=== PATIENT | female | born 1995 | race Caucasian/White ===

== ENCOUNTER 2018-10-23 18:52 | Outpatient (CLI) | payer OTHER ==
[2018-10-23] MEDS ORDERED: PRENATAL FORMU1 EAC1 PO (19:03)
[2018-10-23] MEDS ORDERED: FOLIC ACID1 MG PO (19:03)
[2018-10-24] MEDS ORDERED: CEFADROXIL500 MG PO (12:31)
== END 2018-10-24 14:08 | disposition home or self-care (01) ==
LOC: OBS/DEL 18:52
DX: O23.42 Unspecified infection of urinary tract in pregnancy, second trimester (principal); Z34.02 Encounter for supervision of normal first pregnancy, second trimester

== ENCOUNTER 2019-01-18 15:56 | Inpatient (IN) | payer OTHER ==
[~2019-01-18] VITALS: Ht 160 cm; Wt 62.1 kg
[~2019-01-18 15:56] MED LIST: CEFADROXIL500 MG PO; FOLIC ACID1 MG PO; PRENATAL FORMU1 EAC1 PO
== END 2019-01-28 17:31 | disposition home or self-care (01) | DRG 807 ==
LOC: OB/GYN 01-26 13:03 → LDR 01-26 13:03 → OB/GYN 01-26 19:05
PROVIDERS: ADMIT Obstetrics & Gynecology
PROC: 10E0XZZ Delivery of Products of Conception, External Approach (ICD-10-PCS; principal; 2019-01-26)
PROC: 3E033VJ Introduction of Other Hormone into Peripheral Vein, Percutaneous Approach (ICD-10-PCS; 2019-01-26)
PROC: 4A1HXCZ Monitoring of Products of Conception, Cardiac Rate, External Approach (ICD-10-PCS; 2019-01-26)
DX: O80 Encounter for full-term uncomplicated delivery (principal); Z37.0 Single live birth; Z3A.39 39 weeks gestation of pregnancy

== ENCOUNTER → 2019-11-27 | Outpatient (CLI) | payer OTHER | END | disposition home or self-care (01) | LOC: PRENATAL 14:30 | PROVIDERS: ATTEND Obstetrics & Gynecology | DX: O35.0XX1 Maternal care for (suspected) central nervous system malformation in fetus, fetus 1 (principal); O35.3XX1 Maternal care for (suspected) damage to fetus from viral disease in mother, fetus 1 ==

== ENCOUNTER 2020-03-05 12:30 | Inpatient (IN) | payer OTHER ==
[~2020-03-05] VITALS: Ht 160 cm; Wt 64.4 kg
[2020-03-19] MEDS ORDERED: PRENATAL TABLE1 EAC1 PO (06:28)
== END 2020-03-21 17:38 | disposition home or self-care (01) | DRG 807 ==
LOC: LDR 03-19 06:16 → OB/GYN 03-19 06:16 → LDR 03-19 12:30 → OB/GYN 03-19 13:04
PROVIDERS: ADMIT Obstetrics & Gynecology; ATTEND Obstetrics & Gynecology
PROC: 10E0XZZ Delivery of Products of Conception, External Approach (ICD-10-PCS; principal; 2020-03-19)
PROC: 3E033VJ Introduction of Other Hormone into Peripheral Vein, Percutaneous Approach (ICD-10-PCS; 2020-03-19)
PROC: 4A1HXFZ Monitoring of Products of Conception, Cardiac Rhythm, External Approach (ICD-10-PCS; 2020-03-19)
DX: O80 Encounter for full-term uncomplicated delivery (principal); Z37.0 Single live birth; Z20.828 Contact with and (suspected) exposure to other viral communicable diseases; Z3A.40 40 weeks gestation of pregnancy